=== PATIENT | male | born 1995 | race Caucasian/White ===

== ENCOUNTER 2018-04-15 16:10 | Emergency (ER) | payer MEDICAID, OTHER ==
[~2018-04-15] VITALS: Ht 175.3 cm; Wt 70.4 kg
[~2018-04-15 16:10] MED LIST: BISA10SU60 RC; DOCU-28 PO; NA P133E RC; POLY119P2 PO
[2018-04-15 16:31] VITALS: BP 114/73
--- NOTE | 2018-04-15 17:59 | NUR ---
PT NOTIFIED THAT DC PAPERS WOULD BE COMING SOON. PT WANTED TO GO OUTSIDE FOR A MINUTE AND STATED THAT HE WOULD BE BACK Addendum: 04/15/18 at 1824 by LUANNE PT WAS SEEN LEAVING ER WITH MOTHER, HAS NOT RETURNED STATED.
== END 2018-04-15 18:37 | disposition home or self-care (01) ==
LOC: ER 16:10
DX: G56.22 Lesion of ulnar nerve, left upper limb (principal)
CPT/HCPCS: 99281

== ENCOUNTER 2019-02-27 17:29 | Emergency (ER) | payer OTHER ==
[~2019-02-27] VITALS: Ht 175.3 cm; Wt 65.0 kg
[2019-02-27] MEDS ORDERED: aspirin 81mg tab.chew PO ONE (18:05)
[2019-02-27 18:31] LABS: BASOPHILS % (AUTO) 0.3 % (0-1); EOSINOPHILS # (AUTO) 0.1 X10'3 (0-0.9); EOSINOPHILS % (AUTO) 0.9 % (0-6); HEMATOCRIT 43.9 % (42.0-52.0); HEMOGLOBIN 15.1 g/dl (14.0-17.9); LYMPHOCYTES # (AUTO) 2.4 X10'3 (1.1-4.8); LYMPHOCYTES % (AUTO) 25.2 % (21-51); MEAN CORPUSCULAR HEMOGLOBIN 31.1 PG (27.0-31.0); MEAN CORPUSCULAR HGB CONC 34.3 g/dL (33.0-36.5); MEAN CORPUSCULAR VOLUME 90.7 FL (78-98); MEAN PLATELET VOLUME 8.6 FL (7.4-10.4); MONOCYTES # (AUTO) 0.7 X10'3 (0-0.9); MONOCYTES % (AUTO) 7.7 % (2-12); NEUTROPHILS # (AUTO) 6.2 X10'3 (1.8-7.7); NEUTROPHILS % (AUTO) 65.9 % (42-75); PLATELET COUNT 224 X10'3 (140-440); RED BLOOD COUNT 4.85 X10'6 (4.70-6.10); RED CELL DISTRIBUTION WIDTH 12.8 % (11.5-14.5); WHITE BLOOD COUNT 9.4 X10'3 (4.5-11.0)
[2019-02-27 18:38] LABS: CLARITY,URINE CLEAR (Clear); COLOR,URINE YELLOW (Yellow); GLUCOSE, URINE NEGATIVE (Neg); KETONES,URINE NEGATIVE (Neg); LEUKOCYTE ESTERASE ,URINE NEGATIVE (Neg); NITRITES, URINE NEGATIVE (Neg); OCCULT BLOOD,URINE NEGATIVE (Neg); PROTEIN,URINE NEGATIVE (Neg)
[2019-02-27 18:39] LABS: UA COLLECTION TYPE CLN CATCH MIDSTREAM
[2019-02-27 18:53] LABS: ALANINE AMINOTRANSFERASE 14 U/L (12-78); ALBUMIN 4.4 G/DL (3.4-5.0); ALBUMIN/GLOBULIN RATIO 1.4 (1.1-1.5); ALKALINE PHOSPHATASE 60 IU/L (46-116); ANION GAP 8 (8-16); ASPARTATE AMINO TRANSFERASE 16 U/L (10-37); BILIRUBIN,TOTAL 0.5 MG/DL (0.1-1.0); BLOOD UREA NITROGEN 9 MG/DL (7-18); BUN/CREATININE RATIO 9.5 (5.4-32.0); CALCIUM 9.2 MG/DL (8.5-10.1); CHLORIDE 106 MMOL/L (99-107); CREATININE 0.95 MG/DL (0.60-1.10); GLUCOSE 102 MG/DL (70-104); POTASSIUM 3.6 MMOL/L (3.5-5.1); SODIUM 143 MMOL/L (135-145); TOTAL CARBON DIOXIDE 28.6 MMOL/L (24-32); TOTAL PROTEIN 7.6 G/DL (6.4-8.2); eGFR > 90 ML/MIN
[2019-02-27] MEDS ORDERED: LORazepam 1 MG tablet PO ONE (19:00)
[2019-02-27 19:27] VITALS: BP 117/73
[2019-02-27] MEDS ORDERED: POLY17PO10 PO (19:35)
== END 2019-02-27 19:49 | disposition home or self-care (01) ==
LOC: ER 17:30
DX: R07.89 Other chest pain (principal); K59.00 Constipation, unspecified; R11.2 Nausea with vomiting, unspecified; R06.02 Shortness of breath; F17.200 Nicotine dependence, unspecified, uncomplicated; Z79.899 Other long term (current) drug therapy
CPT/HCPCS: 36415; 71046; 80053; 81003; 84484; 85025; 93005; 99284

== ENCOUNTER 2019-03-11 15:16 | Emergency (ER) | payer OTHER ==
[~2019-03-11] VITALS: Ht 172.7 cm; Wt 80.0 kg
[~2019-03-11 15:16] MED LIST changes: +POLY17PO10 PO
[2019-03-11 15:29] VITALS: BP 123/84
[2019-03-11 15:45] LABS: BASOPHILS % (AUTO) 0.5 % (0-1); EOSINOPHILS # (AUTO) 0.3 X10'3 (0-0.9); EOSINOPHILS % (AUTO) 2.8 % (0-6); HEMATOCRIT 43.6 % (42.0-52.0); HEMOGLOBIN 15.1 g/dl (14.0-17.9); LYMPHOCYTES # (AUTO) 2.1 X10'3 (1.1-4.8); LYMPHOCYTES % (AUTO) 22.8 % (21-51); MEAN CORPUSCULAR HEMOGLOBIN 31.5 PG (27.0-31.0); MEAN CORPUSCULAR HGB CONC 34.7 g/dL (33.0-36.5); MEAN CORPUSCULAR VOLUME 90.8 FL (78-98); MEAN PLATELET VOLUME 8.7 FL (7.4-10.4); MONOCYTES # (AUTO) 0.9 X10'3 (0-0.9); MONOCYTES % (AUTO) 9.7 % (2-12); NEUTROPHILS # (AUTO) 5.9 X10'3 (1.8-7.7); NEUTROPHILS % (AUTO) 64.2 % (42-75); PLATELET COUNT 244 X10'3 (140-440); RED CELL DISTRIBUTION WIDTH 13.3 % (11.5-14.5); WHITE BLOOD COUNT 9.2 X10'3 (4.5-11.0)
[2019-03-11 15:56] LABS: ALANINE AMINOTRANSFERASE 14 U/L (12-78); ALBUMIN 4.1 G/DL (3.4-5.0); ALBUMIN/GLOBULIN RATIO 1.2 (1.1-1.5); ALKALINE PHOSPHATASE 69 IU/L (46-116); ANION GAP 5 (8-16); ASPARTATE AMINO TRANSFERASE 10 U/L (10-37); BILIRUBIN,TOTAL 0.4 MG/DL (0.1-1.0); BLOOD UREA NITROGEN 11 MG/DL (7-18); CALCIUM 8.8 MG/DL (8.5-10.1); CHLORIDE 105 MMOL/L (99-107); CREATININE 0.92 MG/DL (0.60-1.10); GLUCOSE 97 MG/DL (70-104); POTASSIUM 4.1 MMOL/L (3.5-5.1); SODIUM 140 MMOL/L (135-145); TOTAL CARBON DIOXIDE 29.8 MMOL/L (24-32); TOTAL PROTEIN 7.6 G/DL (6.4-8.2); eGFR > 90 ML/MIN
[2019-03-11] MEDS ORDERED: DEXL60CA3 PO (16:22)
[2019-03-11] MEDS ORDERED: sucralfate 1gm/10ml UD suspension PO STA (16:22)
[2019-03-11] MEDS ORDERED: mag hydrox/Alum hydrox/simeth 30ml oral suspension PO ONE (16:25)
[2019-03-11] MEDS ORDERED: LIDOcaine Viscous 15ml cup MM ONE ×2 (16:25→16:50)
== END 2019-03-11 17:13 | disposition home or self-care (01) ==
LOC: ER 15:17
DX: K21.9 Gastro-esophageal reflux disease without esophagitis (principal); Z79.899 Other long term (current) drug therapy
CPT/HCPCS: 36415; 71045; 80053; 84484; 85025; 93005; 99284

== ENCOUNTER 2019-06-21 17:17 | Emergency (ER) | payer OTHER ==
[~2019-06-21] VITALS: Ht 177.8 cm; Wt 62.7 kg
[~2019-06-21 17:17] MED LIST changes: +DEXL60CA3 PO; -POLY17PO10 PO
[2019-06-21 17:19] VITALS: BP 130/74
[2019-06-21] MEDS ORDERED: ONDA4TAB6 PO (17:35)
[2019-06-21] MEDS ORDERED: TAM75C PO (17:35)
== END 2019-06-21 17:43 | disposition home or self-care (01) ==
LOC: ER 17:18
DX: B34.9 Viral infection, unspecified (principal); M79.10 Myalgia, unspecified site; R51 Headache; R50.9 Fever, unspecified; R06.02 Shortness of breath; F17.200 Nicotine dependence, unspecified, uncomplicated; Z79.899 Other long term (current) drug therapy
CPT/HCPCS: 99283

== ENCOUNTER 2022-11-26 17:33 | Emergency (ER) | payer MEDICAID ==
[~2022-11-26 17:33] MED LIST changes: +ONDA4TAB6 PO
== END 2022-11-26 22:05 | disposition left against medical advice (07) ==
LOC: ER 17:34
DX: R50.9 Fever, unspecified (principal); Z53.21 Procedure and treatment not carried out due to patient leaving prior to being seen by health care provider

== ENCOUNTER 2023-09-11 10:34 | Emergency (ER) | payer MEDICAID ==
[~2023-09-11] VITALS: Ht 172.7 cm; Wt 63.8 kg
[2023-09-11 10:38] VITALS: BP 119/73; PULSE 93; RESP 16; TEMP 99.1; O2SAT 99
[2023-09-11] MEDS ORDERED: ketorolac tromethamine 15mg/ml inj. IM ONE (12:00)
== END 2023-09-11 12:58 | disposition left against medical advice (07) ==
LOC: ER 10:35
DX: R07.89 Other chest pain (principal); R68.84 Jaw pain; R51.9 Headache, unspecified; Z53.21 Procedure and treatment not carried out due to patient leaving prior to being seen by health care provider
CPT/HCPCS: 93005

== ENCOUNTER 2024-10-31 17:50 | Emergency (ER) | payer MEDICAID ==
[~2024-10-31] VITALS: Ht 185.4 cm; Wt 63.6 kg
[~2024-10-31 17:50] MED LIST changes: +ERYT1OIN6 EACHEYE
--- NOTE | 2024-10-31 18:48 | Physician Documentation ---
History of Present Illness ~ Chief Complaint: Dizziness Stated Complaint: NEAR CYNCOPE/DIZZINESS Time Seen by MD: 18:14 Primary Medical Doctor: None Mode of Arrival: EMS HPI 29-year-old male presents to the ED with a complaint of panic attack today. States after smoking marijuana he decided to reach out to his strains mother for the final time. He says that she responded asking if he is okay. The the patient then reported having numbness tingling panic feelings along with shortne ss of breath. States that he is feeling somewhat better but wonders if he has gone "insane"> Day of Onset: Oct 31, 2024 Medication Reconciliation Allergies: Uncoded Allergies: SALMON (Allergy, Unknown, 10/28/24) Scheduled Dexlansoprazole (Dexilant), 1 CAP PO DAILY Docusate Sodium (Colace), 1 CAP PO Q12H Erythromycin Base Opth. Ointment* (Erythromycin Opth. Ointment*), 1 APPLIC EACHEYE Q4HWA Na Phos,M-B/Na Phos,Di-Ba (Enema), 1 ENEMAS RC ONCE Ondansetron Hcl (Zofran), 1 TAB PO Q6H Scheduled PRN Bisacodyl (Dulcolax), 1 SUPP RC DAILY PRN for constipation Bisacodyl (Dulcolax), 1 SUPP RC DAILY PRN for constipation Polyethylene Glycol 3350 (Miralax), 17 GM PO DAILY PRN for constipation Polyethylene Glycol 3350 (Miralax), 17 GM PO BID PRN for constipation Past Medical History Past Medical History: *GI/HEPATOBILIARY*, Constipation Past Surgical History: no surgical history Alcohol Use: None Drug Use: none Lives with: Family Lives In: Home Occupation: employed Review of Systems All Other Systems at this time: Reviewed and Negative ROS As stated above in the HPI, otherwise all systems are reviewed and negative. Physical Exam Vital Signs: Temperature: 98.3, Source: Oral, Heart Rate: 98, Respiratory Rate: 16, BP: 115/66, Pulse Oximetry: 100, Weight: 63.600 Oxygen Flow Rate: 0 Physical Exam General: Alert, no apparent distress. Neurologic: Oriented x4. Psychiatric: Normal mood and affect. Skin: Normal color, warm and dry. No edema, no ecchymosis. Progress Results/Orders Results/Orders Completed Orders - ZEE,AURELIO H RENDERING EQUIPMENT TENDER * Orthostatic Vitals* Q12H (10/31/24 18:21) Vital Signs 10/31/24 10/31/24 10/31/24 18:03 18:08 18:58 Temp 98.3 98.3 Pulse 98 70 Resp 16 16 B/P (MAP) 115/66 122/79 Pulse Ox 100 99 O2 Flow Rate 0 Medical Decision Making Findings I spoke at length with this patient about his experiencing talking to his strains mother. It appears that he had a panic attacks secondary to contacting her which caused a multitude of feelings and a physical response to memories. I discussed with him about reaching out to the various mental health resources who can better evaluate him than the emergency department. He agreed this was would likely benefit from Differential Dx:Considerations: Include: Alcohol abuse, Anxiety, Bipolar disorder, Conversion disorder, Depression, Encephaloathy, Homicidal, Panic disorder, Personality disorder, Schizophrenia, Substance abuse, Suicidal, Other Departure Disposition: 01 HOME / SELF CARE / HOMELESS Impression: Primary Impression: Dizziness Additional Impression: Panic attack Condition: Stable Discharge Instructions: Dizziness Additional Instructions: As discussed I recommend that she follow up with mental health provider to help dissect and explore childhood trauma Referrals: NO PRIMARY CARE PROVIDER (PCP) Signature Scribe Signature: Attestation: Scribed for Aurelio Koch Claim Inspector by Aurelio Richardson NP . 10/31/24 22:55 AURELIO KOCH RENDERING EQUIPMENT TENDER Oct 31, 2024 18:48
[2024-10-31 18:58] VITALS: BP 122/79; PULSE 70; RESP 16; TEMP 98.3; O2SAT 99
== END 2024-10-31 18:59 | disposition home or self-care (01) ==
LOC: ER 17:51
DX: R42 Dizziness and giddiness (principal); F41.0 Panic disorder [episodic paroxysmal anxiety]; Z79.899 Other long term (current) drug therapy
CPT/HCPCS: 99283

== ENCOUNTER 2024-12-16 02:24 | Emergency (ER) | payer MEDICAID ==
[~2024-12-16] VITALS: Ht 175.3 cm; Wt 75.0 kg
[~2024-12-16 02:24] MED LIST changes: -ERYT1OIN6 EACHEYE
[2024-12-16 02:29] VITALS: BP 107/69; PULSE 83; RESP 15; TEMP 96.8; O2SAT 99
--- NOTE | 2024-12-16 03:40 | Physician Documentation ---
History of Present Illness ~ Chief Complaint: Anxiety Stated Complaint: ANXIETY ATTACK Time Seen by MD: 03:03 Primary Medical Doctor: None Source: patient Mode of Arrival: POV Exam Limitations: no limitations HPI Mr. Apodaca is a previously healthy 29 y/o male who presents with c/o pain to his back. He states that he had significant anxiety last night and was up pacing around his living room when he developed pain in his back. He denies trauma. No recent febrile illness. Taking a deep breath in makes the pain worse. No actual chest pain. No SOB or difficulty breathing. No rash or skin lesions. Medication Reconciliation Allergies: Coded Allergies: No Known Allergies (Unverified , 12/16/24) Scheduled Dexlansoprazole (Dexilant), 1 CAP PO DAILY Docusate Sodium (Colace), 1 CAP PO Q12H Na Phos,M-B/Na Phos,Di-Ba (Enema), 1 ENEMAS RC ONCE Ondansetron Hcl (Zofran), 1 TAB PO Q6H Scheduled PRN Bisacodyl (Dulcolax), 1 SUPP RC DAILY PRN for constipation Bisacodyl (Dulcolax), 1 SUPP RC DAILY PRN for constipation Polyethylene Glycol 3350 (Miralax), 17 GM PO DAILY PRN for constipation Polyethylene Glycol 3350 (Miralax), 17 GM PO BID PRN for constipation Past Medical History Past Medical History: *GI/HEPATOBILIARY*, Constipation Past Surgical History: no surgical history Alcohol Use: None Drug Use: none Lives with: Family Lives In: Home Occupation: employed Review of Systems All Other Systems at this time: Reviewed and Negative Physical Exam Physical Exam Vital Signs: RN Vital Signs have been reviewed: Yes, Temperature: 96.8, Source: Temporal, Heart Rate: 83, Respiratory Rate: 15, BP: 107/69, Pulse Oximetry: 99, Weight: 75.000 General Appearance: WD/WN, no apparent distress EENT: PERRL/EOMI Neck: non-tender Respiratory: lungs clear, normal breath sounds, no respiratory distress Chest: no accessory muscle use Cardiovascular: normal peripheral pulses, regular rate, rhythm, no edema, no gallop, no JVD, no murmur Gastrointestinal: normal palpation Rectal: deferred BacK: normal inspection, no CVA tenderness Extremities: no evidence of injury Sensory/Motor: sensation grossly intact Psychiatric: normal mood/affect Skin: normal color Progress Results/Orders Results/Orders Vital Signs 12/16/24 02:29 Temp 96.8 Pulse 83 Resp 15 B/P (MAP) 107/69 Pulse Ox 99 Medical Decision Making Differential Dx:Considerations: Include: Aortic dissection, Fracture, Musc uloskeletal pain Differential Diagnosis While here in the ED, he remained hemodynamically normal with ABC's intact and in NAD. He is afebrile and nontoxic. No actual trauma noted to his back. No TTP. No rash or skin lesions. Was planning to order imaging to further evaluate but he states that he has to be at work NLT 0415 or he will be fired. He is in no respiratory distress. No actual chest pain. Offered Ketorolac and he stated he would take Ibuprofen. Anxiety has also resolved. He is safe for d/c home. Given follow-up and return instructions. He voiced understanding and agreement with d/c instructions. Departure Disposition: HOME / SELF CARE / HOMELESS Impression: Primary Impression: Back pain Condition: Improved Referrals: NO PRIMARY CARE PROVIDER (PCP) Education Educated: Patient Educated regarding: diagnosis, treatment Signature Scribe Signature: N/A Attestation: N/A HERMINIA MEADOWS MD Dec 16, 2024 03:40
== END 2024-12-16 03:54 | disposition home or self-care (01) ==
LOC: ER 02:24
DX: M54.9 Dorsalgia, unspecified (principal); F41.0 Panic disorder [episodic paroxysmal anxiety]; Z79.899 Other long term (current) drug therapy
CPT/HCPCS: 99282

== ENCOUNTER 2025-02-04 14:42 | Emergency (ER) | payer MEDICAID ==
[~2025-02-04] VITALS: Ht 175.3 cm; Wt 71.5 kg
[2025-02-04] MEDS ORDERED: LOPE-144 PO (15:17)
--- NOTE | 2025-02-04 15:17 | Physician Documentation ---
History of Present Illness ~ Chief Complaint: Diarrhea Stated Complaint: DIZZINESS Time Seen by MD: 15:16 Primary Medical Doctor: None HPI 29-year-old male who presents to the emergency department after two explosive episodes of diarrhea without blood, fever after eating [facility]. Medication Reconciliation Allergies: Coded Allergies: No Known Allergies (Unverified , 02/04/25) Scheduled Dexlansoprazole (Dexilant), 1 CAP PO DAILY Docusate Sodium (Colace), 1 CAP PO Q12H Na Phos,M-B/Na Phos,Di-Ba (Enema), 1 ENEMAS RC ONCE Ondansetron Hcl (Zofran), 1 TAB PO Q6H Scheduled PRN Bisacodyl (Dulcolax), 1 SUPP RC DAILY PRN for constipation Bisacodyl (Dulcolax), 1 SUPP RC DAILY PRN for constipation Loperamide HCl (Imodium A-D), 1 TAB PO Q4H PRN for constipation Polyethylene Glycol 3350 (Miralax), 17 GM PO DAILY PRN for constipation Polyethylene Glycol 3350 (Miralax), 17 GM PO BID PRN for constipation Past Medical History Past Medical History: *GI/HEPATOBILIARY*, Constipation Past Surgical History: no surgical history Alcohol Use: None Drug Use: none Lives with: Family Lives In: Home Occupation: employed Physical Exam Vital Signs: Temperature: 98.3, Source: Oral, Heart Rate: 100, Respiratory Rate: 18, BP: 127/70, Pulse Oximetry: 100, Weight: 71.500 Oxygen Flow Rate: 0 General Appearance: alert, WD/WN, mild distress EENT: PERRL/EOMI Neck: normal inspection Respiratory: lungs clear Chest: no accessory muscle use Back: normal inspection Extremities: normal range of motion Neurologic: oriented x4 Psychiatric: normal mood/affect Skin: normal color Progress Results/Orders Results/Orders Vital Signs 02/04/25 14:59 Temp 98.3 Pulse 100 Resp 18 B/P (MAP) 127/70 Pulse Ox 100 O2 Flow Rate 0 Medical Decision Making Additional information obtaine: N/A Findings Examination consistent with gastroenteritis without clinical suspicion of inflammatory bowel disease. Outpatient Rx provided Diff Dx GI Bleed:Consideration: Include: Gastroenteritis Diff Dx Pain:Considerations: Include: Gastroenteritis Diff Dx N/V/D:Considerations: Include: Gastroenteritis Diff Dx Rectal:Considerations: Include: Other (Noncontributory) Departure Disposition: HOME / SELF CARE / HOMELESS Impression: Primary Impression: Gastroenteritis Condition: Improved Discharge Instructions: Diarrhea, Adult Additional Instructions: Please continue to advance your diet slowly beginning with oral hydration. Obtain medications and take as directed. Return to the emergency department as needed and/or for fever rash or bloody diarrhea. Referrals: NO PRIMARY CARE PROVIDER (PCP) Prescriptions Loperamide HCl (Imodium A-D) 2 Mg Tablet 1 TAB PO Q4H PRN for constipation, #16 TAB 2 tabs after first loose stool 1 after each loose stool up to 8 pills a day Prov: ROXANNE WOODS 02/04/25 Education Educated: Patient Educated regarding: diagnosis, treatment, prognosis, need for follow up Signature Scribe Signature: . Attestation: . ROXANNE WOODS Feb 04, 2025 15:17
[2025-02-04 15:50] VITALS: BP 120/68; PULSE 100; RESP 20; TEMP 97.6; O2SAT 100
== END 2025-02-04 15:51 | disposition home or self-care (01) ==
LOC: ER 14:43
DX: K52.9 Noninfective gastroenteritis and colitis, unspecified (principal)
CPT/HCPCS: 99282